=== PATIENT | male | born 1970 ===

== ENCOUNTER 2020-08-02 07:33 | Emergency (ER) | payer SELFPAY ==
[~2020-08-02] VITALS: Ht 165.1 cm; Wt 95.2 kg
== END 2020-08-02 09:16 | disposition home or self-care (01) ==
LOC: ER 07:33
DX: S30.0XXA Contusion of lower back and pelvis, initial encounter (principal); W18.2XXA Fall in (into) shower or empty bathtub, initial encounter; Y92.002 Bathroom of unspecified non-institutional (private) residence as the place of occurrence of the external cause
CPT/HCPCS: 72100; 96372; 99283-25; J1885